=== PATIENT | female | born 1980 | race Caucasian/White ===

== ENCOUNTER → 2020-11-15 | Outpatient (REF) | payer OTHER ==
[~2020-11-15] MED LIST: ALOG25TA PO; ATOR1TAB21 PO; D31000TA2 PO; DULO1CAP6 PO; FLUC150T9 PO; FLUO20CA22 PO; IBUP80TA PO; LEVO50TA5 PO; LISI5TAB11 PO; LORA-674 PO; METF-839 PO; NU-I150C PO; OMEP-173 PO; STEG5TAB PO; VITA500C24 PO
== END ==
LOC: M SFHCRHEU 16:12
PROVIDERS: ATTEND Internal Medicine
DX: R79.82 Elevated C-reactive protein (CRP) (principal)

== ENCOUNTER → 2023-09-26 | Outpatient (CLI) | payer OTHER, SELFPAY ==
[~2023-09-26] MED LIST changes: -D31000TA2 PO; +FLUO-365 PO; -FLUO20CA22 PO; +IRON150C5 PO; +LIDOCAINE 1% MDV 20ML VIAL As Ordered ONE; +LORA-1041 PO; -LORA-674 PO; -NU-I150C PO; +VITA100093 PO
[2023-09-26 11:07] VITALS: TEMP 97.4
[2023-09-26 11:45] VITALS: BP 182/87; O2SAT 100
== END ==
LOC: M IRPRO 10:59
PROVIDERS: ATTEND Otolaryngology
DX: R22.1 Localized swelling, mass and lump, neck (principal)